=== PATIENT | male | born 1995 | race African-American/Black ===

== ENCOUNTER 2017-09-03 04:37 | Inpatient (IN) | payer MEDICAID ==
[~2017-09-03] VITALS: Ht 188 cm; Wt 82.8 kg
[2017-09-03 09:37] VITALS: BP 136/89
[2017-09-03 12:36] VITALS: BP 133/89
[2017-09-03] MEDS: LORazepam 2 MG TABLET PO PRN ×2 (12:36→20:33)
[2017-09-03] MEDS: AMOXICILLIN TRIHYDRATE 500 MG CAPSULE PO SCH ×2 (13:00→17:19)
[2017-09-03 16:00] VITALS: BP 109/69
[2017-09-03] MEDS: MIRTAZAPINE 15 MG TABLET PO SCH (20:33)
[2017-09-04 05:57] VITALS: BP 108/72
[2017-09-04 08:12] VITALS: BP 134/76
[2017-09-04 08:25] LABS: ALANINE AMINOTRANSFERASE 33 U/L (12-78); ALBUMIN 3.9 g/dL (3.4-5.0); ALKALINE PHOSPHATASE 63 U/L (46-116); ANION GAP 10 mmol/L (8-16); ASPARTATE AMINOTRANSFERASE 25 U/L (15-37); BILIRUBIN,TOTAL 0.9 mg/dL (0.1-1.0); CALCIUM, TOTAL 9.2 mg/dL (8.8-10.5); CARBON DIOXIDE 27 mmol/L (22-29); CHLORIDE 104 mmol/L (98-107); CREATININE 0.85 mg/dL (0.60-1.30); GLOMERULAR FILTR. RATE CALC > 60 mL/min (>60); GLUCOSE,RANDOM 73 mg/dL (70-110); POTASSIUM 4.1 mmol/L (3.5-5.1); SODIUM SERUM 141 mmol/L (136-145); TOTAL PROTEIN, SERUM 7.3 g/dL (6.4-8.2); UREA NITROGEN, BLOOD 17 mg/dL (7-18)
[2017-09-04 08:26] LABS: EOSINOPHILS % (AUTO) 4.2 % (1.0-6.0); HEMOGLOBIN 14.6 g/dL (13.5-17.5); LYMPHOCYTES # (AUTO) 1.7 K/uL (1.0-4.8); MEAN CORPUSCULAR HEMOGLOBIN 29.7 pg (26.0-34.0); MEAN CORPUSCULAR VOLUME 87 fL (80-100); MONOCYTES # (AUTO) 0.7 K/uL (0.1-1.0); MONOCYTES % (AUTO) 16.1 % (2.0-9.0); NEUTROPHILS # (AUTO) 1.8 K/uL (1.8-7.7); NEUTROPHILS % (AUTO) 40.7 % (40.0-70.0); PLATELET COUNT (AUTO) 226 K/uL (150-450); RED BLOOD CELL COUNT(AUTO) 4.92 MIL/uL (4.50-5.90); RED CELL DISTRIBUTION WIDTH 14.9 % (11.5-14.5)
[2017-09-04] MEDS: AMOXICILLIN TRIHYDRATE 500 MG CAPSULE PO SCH ×3 (09:09→17:43)
[2017-09-04] MEDS: LORazepam 2 MG TABLET PO PRN (14:13)
[2017-09-04] MEDS: HALOPERIDOL 5 MG TABLET PO PRN (14:14)
[2017-09-04] MEDS ORDERED: MAG HYDROX/AL HYDROX/SIMETH ES 30 ML SUSPENSION UDCUP PO PRN (14:45)
[2017-09-04 16:00] VITALS: BP 112/80
[2017-09-04] MEDS: ZOLPIDEM TARTRATE 10 MG TABLET PO PRN (20:50)
[2017-09-04] MEDS: MIRTAZAPINE 15 MG TABLET PO SCH (20:50)
[2017-09-05 08:18] VITALS: BP 100/55
[2017-09-05] MEDS: AMOXICILLIN TRIHYDRATE 500 MG CAPSULE PO SCH ×3 (08:31→17:09)
[2017-09-05] MEDS: HALOPERIDOL 5 MG TABLET PO PRN ×2 (08:31→17:09)
[2017-09-05] MEDS: LORazepam 2 MG TABLET PO PRN ×2 (08:31→17:09)
[2017-09-05 16:27] VITALS: BP 109/60
[2017-09-05] MEDS: ZOLPIDEM TARTRATE 10 MG TABLET PO PRN (21:17)
[2017-09-05] MEDS: MIRTAZAPINE 30 MG TABLET PO SCH (21:17)
[2017-09-06 06:35] VITALS: BP 106/71
[2017-09-06] MEDS: LORazepam 2 MG TABLET PO PRN ×2 (08:11→16:41)
[2017-09-06] MEDS: HALOPERIDOL 5 MG TABLET PO PRN ×2 (08:11→16:41)
[2017-09-06] MEDS: ARIPiprazole 5 MG TABLET PO SCH (08:11)
[2017-09-06] MEDS: AMOXICILLIN TRIHYDRATE 500 MG CAPSULE PO SCH ×3 (08:11→16:41)
[2017-09-06 08:33] VITALS: BP 119/70
[2017-09-06 16:48] VITALS: BP 123/63
[2017-09-06] MEDS: MIRTAZAPINE 30 MG TABLET PO SCH (20:36)
[2017-09-06] MEDS: ZOLPIDEM TARTRATE 10 MG TABLET PO PRN (20:36)
[2017-09-07 06:36] VITALS: BP 113/65
[2017-09-07 08:10] VITALS: BP 129/64
[2017-09-07] MEDS: ARIPiprazole 5 MG TABLET PO SCH (09:02)
[2017-09-07] MEDS: AMOXICILLIN TRIHYDRATE 500 MG CAPSULE PO SCH ×3 (09:02→16:51)
[2017-09-07] MEDS: LORazepam 2 MG TABLET PO PRN ×3 (09:06→21:01)
[2017-09-07 16:00] VITALS: BP 112/80
[2017-09-07] MEDS: NICOTINE 14 MG/24 HOUR PATCH TD SCH (16:51)
[2017-09-07] MEDS: MIRTAZAPINE 30 MG TABLET PO SCH (21:01)
[2017-09-07] MEDS: ZOLPIDEM TARTRATE 10 MG TABLET PO PRN (21:01)
[2017-09-08 06:34] VITALS: BP 122/73
[2017-09-08] MEDS: NICOTINE 14 MG/24 HOUR PATCH TD SCH (09:10)
[2017-09-08] MEDS: RisperiDONE 1 MG TABLET PO SCH ×2 (09:10→16:14)
[2017-09-08] MEDS: AMOXICILLIN TRIHYDRATE 500 MG CAPSULE PO SCH ×3 (09:10→16:14)
[2017-09-08 16:00] VITALS: BP 133/71
[2017-09-08] MEDS: LORazepam 2 MG TABLET PO PRN ×2 (16:14→20:40)
[2017-09-08] MEDS: HALOPERIDOL 5 MG TABLET PO PRN (16:14)
[2017-09-08] MEDS: ZOLPIDEM TARTRATE 10 MG TABLET PO PRN (20:40)
[2017-09-08] MEDS: MIRTAZAPINE 30 MG TABLET PO SCH (20:40)
[2017-09-08] MEDS: IBUPROFEN 400 MG TABLET PO PRN (23:31)
[2017-09-08 23:32] VITALS: BP 112/88
[2017-09-09 08:08] VITALS: BP 120/71
[2017-09-09] MEDS: AMOXICILLIN TRIHYDRATE 500 MG CAPSULE PO SCH ×3 (09:06→16:31)
[2017-09-09] MEDS: LORazepam 2 MG TABLET PO PRN (09:06)
[2017-09-09] MEDS: RisperiDONE 1 MG TABLET PO SCH ×2 (09:06→16:31)
[2017-09-09] MEDS: NICOTINE 14 MG/24 HOUR PATCH TD SCH (09:07)
[2017-09-09 16:38] VITALS: BP 123/79
[2017-09-09 18:14] VITALS: BP 125/78
[2017-09-09] MEDS: IBUPROFEN 400 MG TABLET PO PRN (18:19)
[2017-09-09] MEDS: MIRTAZAPINE 30 MG TABLET PO SCH (20:31)
[2017-09-09] MEDS: ZOLPIDEM TARTRATE 10 MG TABLET PO PRN (20:31)
[2017-09-10 05:07] VITALS: BP 125/82
[2017-09-10 08:09] VITALS: BP 122/65
[2017-09-10] MEDS: RisperiDONE 1 MG TABLET PO SCH ×2 (09:00→16:30)
[2017-09-10] MEDS: LORazepam 2 MG TABLET PO PRN ×2 (09:00→16:30)
[2017-09-10] MEDS: NICOTINE 14 MG/24 HOUR PATCH TD SCH (09:01)
[2017-09-10] MEDS: IBUPROFEN 400 MG TABLET PO PRN (13:56)
[2017-09-10 17:04] VITALS: BP 119/67
[2017-09-10] MEDS: HALOPERIDOL 5 MG TABLET PO PRN (17:08)
[2017-09-10] MEDS: MIRTAZAPINE 30 MG TABLET PO SCH (20:43)
[2017-09-10] MEDS: ZOLPIDEM TARTRATE 10 MG TABLET PO PRN (20:43)
[2017-09-11 06:06] VITALS: BP 126/88
[2017-09-11 08:32] VITALS: BP 125/61
[2017-09-11] MEDS: NICOTINE 14 MG/24 HOUR PATCH TD SCH (08:34)
[2017-09-11] MEDS: RisperiDONE 1 MG TABLET PO SCH (08:34)
[2017-09-11] MEDS: IBUPROFEN 400 MG TABLET PO PRN ×2 (13:48→22:00)
[2017-09-11 16:00] VITALS: BP 118/67
[2017-09-11] MEDS: HALOPERIDOL 5 MG TABLET PO PRN (16:23)
[2017-09-11] MEDS: LORazepam 2 MG TABLET PO PRN ×2 (16:23→20:37)
[2017-09-11] MEDS: RisperiDONE 2 MG TABLET PO SCH (16:23)
[2017-09-11] MEDS: ZOLPIDEM TARTRATE 10 MG TABLET PO PRN (20:37)
[2017-09-11] MEDS: MIRTAZAPINE 30 MG TABLET PO SCH (20:37)
[2017-09-12 06:22] VITALS: BP 132/80
[2017-09-12 08:09] VITALS: BP 126/64
[2017-09-12] MEDS: NICOTINE 14 MG/24 HOUR PATCH TD SCH (08:33)
[2017-09-12] MEDS: RisperiDONE 2 MG TABLET PO SCH (08:33)
[2017-09-12 11:13] VITALS: BP 113/76
[2017-09-12] MEDS: IBUPROFEN 400 MG TABLET PO PRN ×2 (11:13→21:36)
[2017-09-12 16:00] VITALS: BP 128/72
[2017-09-12] MEDS: HALOPERIDOL 5 MG TABLET PO PRN (16:23)
[2017-09-12] MEDS: RisperiDONE 3 MG TABLET PO SCH (16:23)
[2017-09-12] MEDS: LORazepam 2 MG TABLET PO PRN ×2 (16:23→21:36)
[2017-09-12] MEDS: MIRTAZAPINE 15 MG TABLET PO SCH (21:32)
[2017-09-12] MEDS: ZOLPIDEM TARTRATE 10 MG TABLET PO PRN (21:36)
[2017-09-13 08:10] VITALS: BP 122/68
[2017-09-13] MEDS: RisperiDONE 3 MG TABLET PO SCH ×2 (08:39→16:15)
[2017-09-13] MEDS: NICOTINE 14 MG/24 HOUR PATCH TD SCH (08:39)
[2017-09-13] MEDS ORDERED: RisperiDONE MICROSPHERES 50 MG/2 ML SYRINGE IM SCH (09:00)
[2017-09-13 14:31] VITALS: BP 118/79
[2017-09-13] MEDS: IBUPROFEN 400 MG TABLET PO PRN ×2 (14:31→23:54)
[2017-09-13 16:00] VITALS: BP 123/73
[2017-09-13] MEDS: HALOPERIDOL 5 MG TABLET PO PRN (16:15)
[2017-09-13] MEDS: LORazepam 2 MG TABLET PO PRN ×2 (16:15→21:15)
[2017-09-13] MEDS: ZOLPIDEM TARTRATE 10 MG TABLET PO PRN (21:15)
[2017-09-13] MEDS: MIRTAZAPINE 15 MG TABLET PO SCH (21:15)
[2017-09-14 00:50] VITALS: BP 114/75
[2017-09-14 09:03] VITALS: BP 136/76
[2017-09-14] MEDS: NICOTINE 14 MG/24 HOUR PATCH TD SCH (09:18)
[2017-09-14] MEDS: RisperiDONE 3 MG TABLET PO SCH ×2 (09:18→16:08)
[2017-09-14 11:10] VITALS: BP 129/80
[2017-09-14 11:16] VITALS: BP 122/64
[2017-09-14] MEDS: IBUPROFEN 400 MG TABLET PO PRN ×2 (11:16→19:22)
[2017-09-14] MEDS: LORazepam 2 MG TABLET PO PRN ×2 (16:08→20:10)
[2017-09-14] MEDS: HALOPERIDOL 5 MG TABLET PO PRN (16:08)
[2017-09-14 16:31] VITALS: BP 127/67
[2017-09-14] MEDS: MIRTAZAPINE 15 MG TABLET PO SCH (20:09)
[2017-09-14] MEDS: ZOLPIDEM TARTRATE 10 MG TABLET PO PRN (20:10)
[2017-09-15 06:48] VITALS: BP 105/68
[2017-09-15 08:10] VITALS: BP 138/64
[2017-09-15] MEDS: RisperiDONE 3 MG TABLET PO SCH (08:53)
[2017-09-15] MEDS: NICOTINE 14 MG/24 HOUR PATCH TD SCH (08:54)
[2017-09-15] MEDS ORDERED: RISP3TAB44 PO (11:48)
[2017-09-15] MEDS ORDERED: MIRT45TA PO (11:49)
[2017-09-15] MEDS ORDERED: RISPC50 IM (11:49)
== END 2017-09-15 12:39 | disposition home or self-care (01) | DRG 750 ==
LOC: B3A 09:58
PROVIDERS: ADMIT Psychiatry & Neurology Psychiatry; ATTEND Psychiatry & Neurology Psychiatry
DX: F25.0 Schizoaffective disorder, bipolar type (principal); R45.851 Suicidal ideations; F11.20 Opioid dependence, uncomplicated; F15.20 Other stimulant dependence, uncomplicated; F60.3 Borderline personality disorder; F41.9 Anxiety disorder, unspecified; R00.0 Tachycardia, unspecified; G47.00 Insomnia, unspecified; Z59.0 Homelessness; Z91.5 Personal history of self-harm; Z71.51 Drug abuse counseling and surveillance of drug abuser
CPT/HCPCS: 86592; 99285; J2794

== ENCOUNTER 2019-07-24 18:27 | Emergency (ER) | payer MEDICAID ==
[~2019-07-24] VITALS: Ht 185.4 cm; Wt 73.6 kg
[~2019-07-24 18:27] MED LIST: MIRT45TA PO; RISP3TAB44 PO; RISPC50 IM
[2019-07-24] MEDS ORDERED: POVIDONE-IODINE 10% 15 ML SOLUTION UD TP ONE (20:30)
[2019-07-24] MEDS ORDERED: LIDOCAINE 1% 10 ML VIAL INJ ONE (20:30)
[2019-07-24] MEDS ORDERED: PERTUSS(ACELL),DIPH,TET VAC/PF 0.5 ML VIAL IM ONE (21:15)
[2019-07-24 21:30] VITALS: BP 112/64
== END 2019-07-24 21:51 | disposition home or self-care (01) ==
LOC: EMS 18:30
DX: S00.452A Superficial foreign body of left ear, initial encounter (principal); L08.9 Local infection of the skin and subcutaneous tissue, unspecified; F17.210 Nicotine dependence, cigarettes, uncomplicated; F12.90 Cannabis use, unspecified, uncomplicated; F19.90 Other psychoactive substance use, unspecified, uncomplicated; W26.8XXA Contact with other sharp object(s), not elsewhere classified, initial encounter; Y93.89 Activity, other specified; Y92.89 Other specified places as the place of occurrence of the external cause; Y99.8 Other external cause status
CPT/HCPCS: 90471; 90715; 99284; J3490